=== PATIENT | male | born 1955 | race Caucasian/White ===

== ENCOUNTER 2021-07-06 03:44 | Inpatient (IN) | payer OTHER ==
[~2021-07-06] VITALS: Ht 170.2 cm; Wt 103.3 kg
[~2021-07-06 03:44] MED LIST: ACETAMINOPHEN325 M1 PO; AFRIN30 ML NAS; ALPHAGAN P5 M1 OPTH; AMLODIPINE BESYL5 MG PO; ASPIRIN EC325 MG PO; BUSPIRONE HCL5 MG PO; CARVEDILOL12.5 MG PO; CITALOPRAM HBR10 MG PO; CITALOPRAM HBR20 MG PO; CLINDAMYCIN HC300 MG PO; CLOTRIMAZOLE15 GM TOP; COMBIVENT RESPIM4 GM INH; COREG12.5 MG PO; FISH OIL 1,2001 EAC3 PO; FLUOXETINE HCL10 M1 PO; GABAPENTIN300 MG PO; GUAIFENESIN200 MG PO; HUMALOG100 UNIT/1 SUB-Q; HYDROXYZIN10 MG/5 M1 PO; HYDROXYZINE HCL25 MG PO; IBUPROFEN800 MG PO; IPRAT-ALBUT 0.5-3 ML INH; KEPPRA500 MG PO; LATANOPROST2.5 ML OU; LEVAQUIN750 MG PO; LO-DOSE ASPIRIN81 M1 PO; LOVENOX40 MG SUB-Q; METOPROLOL SUC200 MG PO; METOPROLOL SUCC50 MG PO; MULTI-DAY VITA1 EACH PO; NAPROSYN375 MG PO; NIFEDICAL XL30 MG PO; NORVASC5 MG PO; NYSTATIN15 GM TOP; OMEPRAZOLE20 MG PO; OXYMETAZOLINE H15 ML NAS; PRAVACHOL20 MG PO; PRAVACHOL40 MG PO; PRAVACHOL80 MG PO; PROCARDIA XL30 MG PO; PROTONIX40 MG PO; PROZAC10 MG PO; SAW PALMETTO450 MG PO; SENNA8.6 MG PO; SUPER OMEGA-31000 MG PO; TAB A VITE1 EAC1 PO; TOPROL XL200 MG PO; TRIAMCINOLONE A15 GM TOP; TUMS200 MG PO; ZITHROMAX250 MG PO
--- NOTE | 2021-07-06 06:30 | NUR ---
pt admitted from ed, to room 113. 1.5Lnc, sats 95%, tel 5 for cpox placed. dependent with 3 staff to move pt from stretcher to bed. able to lift his right leg up in air, as well as left leg, left arm and hand. right arm unable to lift, he shows me how he lifts it, with his left arm. unable to answer questions for the history, will complete based on ed report. explained call light, he nodded an understanding, however, will place bed alarm for his safety.
--- NOTE | 2021-07-06 06:46 | NUR ---
PT ARRIVED TO [facility] AND WAS TUCKED IN BY ASSOCIATE PROFESSOR OF CRIMINAL JUSTICEDORENE OSORIO. IN ROOM TO START REMDESIVIR. PT WAS SLEEPING, WOKE PT TO TELL HIM ABOUT MEDICATION AND START IT. HE IS RESTING WITH EYES CLOSED AGAIN AT THIS TIME. IV IS INFUSING FINE AND CALL LIGHT IS CLOSE. BED ALARM IS ON.
--- NOTE | 2021-07-06 07:30 | NUR ---
Shift report received from DORENE Pardo/TAMIA Hodgson in room to assist pt to bathroom, no further needs at this time
--- NOTE | 2021-07-06 07:30 | NUR ---
Shift report received from DORENE Niño, pt resting safely in bed w/ call light in reach and eyes closed, RR even and unlabored, O2 sats 92% on 1.5L via NC.
--- NOTE | 2021-07-06 10:00 | NUR ---
Pt sitting up in bed safely w/ call light in reach. Morning assesment complete, scheduled meds given, and IV abx hung and infusing per provider order. Pt able to answer yes or no questions. called to obtain information on how pt transfers and voids. 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 Pt c/o abd pain unable to rate, PRn Tylenol given per request. No further needs at this time, bed alarm on.
--- NOTE | 2021-07-06 10:00 | NUR ---
PT SITTING UP IN BED. IN TO GET I&O'S. DORENE RODAS NOTIFIED. CALL LIGHT WITHIN REACH, NO FURTHER NEEDS AT THIS TIME.
[2021-07-06] MEDS ORDERED: LUBRICANT EYE D15 ML OPTH (10:49)
[2021-07-06] MEDS ORDERED: VITAMIN D325 MCG PO (10:50)
[2021-07-06] MEDS ORDERED: EUCERIN ECZEMA226 GM TOP (10:53)
[2021-07-06] MEDS ORDERED: GABAPENTIN800 MG PO (10:56)
[2021-07-06] MEDS ORDERED: PRAVASTATIN SOD80 MG PO (10:57)
[2021-07-06] MEDS ORDERED: LEVETIRACETAM500 MG PO (10:59)
[2021-07-06] MEDS ORDERED: SPIRIVA18 MCG INH (11:00)
--- NOTE | 2021-07-06 11:00 | NUR ---
Pt is covid +. attempted to complete assessment on phone and pt is not able to do so. Called pts , Rosalind. She states pt had a stroke in 2012 and has had aphasia and r sided deficit since that time. They use the [facility] for medical and for meds. Pt does not have any dme at home as he will not use it. He is on the [place] home [place] program and has a cg 32 hours per week and respite 40 hrs per year. denies needs and plans on pt discharging to home when cleared medically. She would like PT on discharge.
[2021-07-06] MEDS ORDERED: ACETAMINOPHEN325 M1 PO (11:02)
[2021-07-06] MEDS ORDERED: ALL DAY ALLERGY10 M3 PO (11:03)
[2021-07-06] MEDS ORDERED: KETOCONAZOLE120 ML TOP (11:04)
[2021-07-06] MEDS ORDERED: VENTOLIN HFA18 GM INH (11:05)
[2021-07-06] MEDS ORDERED: CLOBETASOL PROP15 GM TOP (11:08)
[2021-07-06] MEDS ORDERED: TRIAMCINOLONE A15 G1 TOP (11:09)
[2021-07-06] MEDS ORDERED: DOCUSATE SODIU100 MG PO (11:11)
--- NOTE | 2021-07-06 11:15 | NUR ---
MED REC COMPLETED BY PHARMACY
--- NOTE | 2021-07-06 11:19 | NUR ---
DUE TO PRECAUTIONS, I AM UNABLE TO VISIT IN PERSON. WILL FOLLOW NEEDED
--- NOTE | 2021-07-06 12:00 | NUR ---
Pt due to void, bladder scan for 300 mL, provider aware, pt exlpained that if he could not urinate on his own a cortez catheter would be placed. 1PA to bathroom pt able to void 350mL concetrated urine, provider updatd no new orders at this time. Pt now resting in bed safely sitting up eating lunch, no further needs at this time
--- NOTE | 2021-07-06 14:00 | NUR ---
Pt sitting up in bed w/ call light in reach, scheduled meds given per provider order, pt denies any needs at this time
--- NOTE | 2021-07-06 15:08 | NUR ---
RESPIRATORY THERAPIST IN ROOM TO GIVE BREATHING TREATMENT. CALL LIGHT WITHIN REACH, NO FURTHER NEEDS AT THIS TIME.
--- NOTE | 2021-07-06 16:07 | NUR ---
Pt sitting up in bed w/ call light in reach, pt denies any needs at this time, IV fluids infusing per provider order, O2 sats 93% on 2L via NC
--- NOTE | 2021-07-06 18:01 | NUR ---
Pt sitting up in bed safely w/ call light in reach and bed alarm on, pt denies any needs at this time
--- NOTE | 2021-07-06 19:02 | NUR ---
PT SITTING CROSS LEGGED IN BED WATCHING TV. CALL LIGHT WITHIN REACH, NO FURTHER NEEDS AT THIS TIME
--- NOTE | 2021-07-06 19:30 | NUR ---
IN TO SEE PT. PT IN BED AWAKE AND ALER WATCHING TV. PT DENIES PAIN AT THIS ITME. CALL LIGHT IN REACH.
--- NOTE | 2021-07-06 21:40 | NUR ---
I AND O'S, VSS COMPLETED. SCHEDULED MEDICATIONS GIVEN.PT DENIES PAIN. PT USING IS 1000-1250ML X 10. O2 92 ON 2LNC. NON-PRODUCTIVE COUGH NOTED. LUNGS DIM ON THE RIGHTPOSTERIORLY AND CRACKLES UPPER TYSON NOTED. NO OTHER NEEDS. BED ALARM ON. CALL LIGHT IN REACH.
--- NOTE | 2021-07-06 23:00 | NUR ---
UPDATE PROVIDED TO FAMILY.
--- NOTE | 2021-07-06 23:05 | NUR ---
PT CALLED, PT NEEDING TO VOID, SBA, BACK TO BED, ALARM IS SET
--- NOTE | 2021-07-06 23:40 | NUR ---
IN TO SEE PT. PT DENIES PAIN OR NEED TO USE RESTROOM. BED ALRAM ON. NO NEEDS, CALL LIGHT IN REACH.
--- NOTE | 2021-07-07 02:32 | NUR ---
PT IN BED AWAKE AND ALERT. TAMIA LINCOLN IN ROOM WITH PT. PT DENIES PAIN OR OTHER NEEDS. BED ALRAM ON, CALL LIGHT IN REACH.
--- NOTE | 2021-07-07 03:33 | NUR ---
PT UP TO USE BATHROOM AND BACK TO BED. O2 91 ON 2 LNC. PT USING IS 1500-1750MLS X 10 WITH ENCOURAGEMENT. JELLO AND FRESH WATER PROVIDED. PT DENIES PAIN. NO OTHER NEEDS, BED ALARM ON. CALL LIGHT IN REACH.
--- NOTE | 2021-07-07 04:56 | NUR ---
ALERT AND ORIENTED, SL. REG DIET, 2L NC. IS WITH ENCOURAGEMENT, 1 PA TO BR. CONT. WOUND CONSULT. APHASIA.
--- NOTE | 2021-07-07 09:30 | NUR ---
REPORT RECEIVED FROM NIGHT RN AND PT. CARE RESUMED. PT. IS ALERT AND ORIENTED. HE IS ABLE TO GIVE SHORT ANSWERS, BUT ANSWERED INAPPROPRIATELY WHEN ASKED . ON 2L NC AND O2 SAT IS 92%. PT. AMBULATED WITH SBA TO BATHROOM TO VOID. TOLERATED WELL. CRACKLES PRESENT IN LLL AND DIM. RLL. IV SITE WNL AND FLUSHES WELL. DISCUSSED MEDS, SAFETY AND O2. LEFT RESTING WITH CALL LIGHT IN REACH.
--- NOTE | 2021-07-07 11:00 | NUR ---
No plan for dc today. would like HH on dc.
--- NOTE | 2021-07-07 11:20 | NUR ---
ROUNDING ON PT. HE IS RESTING WITH EYES CLOSED. ON 2L NC AND O2 SAT IS 93%.
--- NOTE | 2021-07-07 12:19 | NUR ---
PT.'S PARTNER, VIJI CALLED FOR AN UPDATE. SHE WAS UPDATED AND WILL CALL AGAIN THIS EVENING.
--- NOTE | 2021-07-07 12:51 | EKG ---
[facility] [address] [place], [place] [address] Signed Normal sinus rhythm Septal infarct (cited on or before 10-APR-2018) Abnormal ECG When compared with ECG of 10-APR-2018 14:44, Nonspecific T wave abnormality, improved in Lateral leads Confirmed by REN DHILLON DO ([id number]) on 07/07/2021 12:50:42 PM Electronically Signed By: REN DHILLON DO 07/07/21 1251 PATIENT NAME: JOSETAIWO ERICH Electrocardiogram DATE OF : 53 PHYSICIAN: REN DHILLON DO REPORT #: [id number] REPORT IS CONFIDENTIAL AND NOT TO BE RELEASED WITHOUT AUTHORIZATION
--- NOTE | 2021-07-07 14:28 | NUR ---
WILL CONTINUE TO FOLLOW, PT ON PRECAUTIONS
--- NOTE | 2021-07-07 14:52 | NUR ---
PT. ASSISTED WITH REPLACING PULSE OX. O2 SAT WAS 87-88% AND TITRATED TO 3L NC. PT. REFUSES PRONING OR SITTING IN CHAIR. HE APPEARS CONFUSED AT ONE POINT, WAVING AT THE DOOR WHEN NO ONE WAS THERE. DIFFICULT TO ASSESS PT. ORIENTATION DUE TO EXPRESSIVE APHASIA/ COMMUNICATION. WILL CONTINUE TO MONITOR.
--- NOTE | 2021-07-07 17:00 | NUR ---
PT. CONSENT SIGNED TO PHOTOGRAPH WOUND ON GLUTEAL FOLDS. PHOTOS PLACED IN CHART. PT. BROUGHT WATER. LEFT RESTING WITH CALL LIGHT IN REACH.
--- NOTE | 2021-07-07 19:35 | NUR ---
kayla ramirez called with updates via phone.
--- NOTE | 2021-07-07 20:38 | NUR ---
WAS ON 3L NC , SATS 93-95%, DECREAED TO 2LNC, TELE CPOX IN PLACE. COOP, AMBULATED TO BR W/O ASSIST. R ARM FLACCID, R ARM WEAKNESS. SL LW PATENT. DISPHAGIA, ANSWERS BETTER YES/NO QUESTIONS. COOPERATIVE.
--- NOTE | 2021-07-07 23:12 | NUR ---
CONTINUES ON 2LNC, CPOX/TELE#[address] SATS 93%, WATCHING TV, DENIES CO W[place] SOB. CONT ON RESP ISOLATION. R ARM WEAKNESS STIFFNESS R HAND. CALL LIGHT AND FLUIDS T HANDS REACH. STATED "WHEN CAN I GO HOME, I WANT TO GO HOME" EXPRESSIVE APHASIS PRESENT. TOOK SEVERAL TRYES AND STATED YES.
--- NOTE | 2021-07-07 23:45 | NUR ---
PT CAME OUT AND WAS SHOUTING BY HIS ROOM DOOR, REDIRECTED TO ROOM DUE TO FOLR SOTELO, COOPERATIVE. WAS ON ROOM AIR, HAD TAKEN O2 OFF, TELE/CPOX OFF. BACK ON 93% SATS AT THIS TIME. OUTPATIENT CODING SPECIALIST IN ROOM, PT IN REP ISOLATION
--- NOTE | 2021-07-08 02:55 | NUR ---
resting, eyes closed, on 2lnc, cpox #5 92%, no distress, bed alarm on. on rep isolation. call light and fluids at bedside
--- NOTE | 2021-07-08 03:29 | NUR ---
pt's bed alarm going off, pt is in bathroom, states "i got to piss" pt remains on o2, ambulated self back to bed when done. made sure pt's rails were up and call light in reach. pt had a small smear of bm, and about 450 ml urine in hat that was losided in toilet.
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
--- NOTE | 2021-07-08 05:22 | NUR ---
ON 2LNC, TELE/CPOX 91%. TOLERATING LIQUIDS WELL, NO SOB. CALL LIGHT AT HANDS REACH. CONTINUES ON RESPIRATORY ISOLATION
--- NOTE | 2021-07-08 06:20 | NUR ---
HEARD YELLING. PT WANTING TO GET UP TO BATHROOM. CALL LIGHT HAD FALLEN ON FLOOR. SBA TO BATHROOM, INCON CARE GIVEN, VOIDED IN TOILET WELL. CLEAN ATTENDS PLACED, BACK TO BED CALL LIGHT IN HAND, BED ALARM PLACED.
--- NOTE | 2021-07-08 08:00 | NUR ---
REPORT RECEIVED FROM NIGHT RN AND PT. CARE RESUMED. PT. IS ALERT AND ORIENTED. SHE DENIES PAIN AT THIS TIME. WITH SITTING UP PT. REPORTS FEELING LIGHT HEADED AND DIZZY. RESOLVED AFTER A COUPLE MINUTES. ON R.A. AND O2 SAT. IS 96%. IV SITE WNL AND FLUSHES WELL. DISCUSSED POC, MEDS AND SAFETY. LEFT RESTING WITH CALL LIGHT IN REACH.
--- NOTE | 2021-07-08 08:30 | NUR ---
REPORT RECEIVED FROM NIGHT RN AND PT. CARE RESUMED. PT. IS ALERT AND SITTING UPRIGHT IN BED. . HE DENIES PAIN OR SOB. ON 2L NC AND O2 SAT IS 93%. IV SITE WNL AND FLUSHES WELL. LUNGS COARSE THROUGHOUT WITH EXP. WHEEZING ON RUL. GLUTEAL FOLD IS REDDENED WITH ABBRASION. DISCUSSED POC, MEDS AND ENCOURAGED HIM TO USE I.S. PT. DEMONSTRATED USE. LEFT RESTING WITH CALL LIGHT IN REACH.
[2021-07-08] MEDS ORDERED: DEXAMETHASONE4 MG PO (12:40)
--- NOTE | 2021-07-08 13:43 | NUR ---
ORDER FOR HOME O2, FACESHEET AND DISCHARGE SUMMARY SENT TO [facility]. ORDER FOR PT FAXED TO [facility].
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
== END 2021-07-08 14:55 | disposition home or self-care (01) | DRG 177 ==
LOC: ED 03:44 → MS 05:01
PROVIDERS: ADMIT Student in an Organized Health Care Education/Training Program; ATTEND Student in an Organized Health Care Education/Training Program
PROC: XW033E5 Introduction of Remdesivir Anti-infective into Peripheral Vein, Percutaneous Approach, New Technology Group 5 (ICD-10-PCS; principal; 2021-07-06)
PROC: 3E0DX3Z Introduction of Anti-inflammatory into Mouth and Pharynx, External Approach (ICD-10-PCS; 2021-07-06)
DX: U07.1 COVID-19 (principal); J96.01 Acute respiratory failure with hypoxia; J12.82 Pneumonia due to coronavirus disease 2019; J44.1 Chronic obstructive pulmonary disease with (acute) exacerbation; J44.0 Chronic obstructive pulmonary disease with (acute) lower respiratory infection; I69.351 Hemiplegia and hemiparesis following cerebral infarction affecting right dominant side; K21.9 Gastro-esophageal reflux disease without esophagitis; R73.03 Prediabetes; G40.909 Epilepsy, unspecified, not intractable, without status epilepticus; I10 Essential (primary) hypertension; G89.29 Other chronic pain; H40.9 Unspecified glaucoma; Z88.2 Allergy status to sulfonamides; I69.320 Aphasia following cerebral infarction; Z88.1 Allergy status to other antibiotic agents; Z88.8 Allergy status to other drugs, medicaments and biological substances; Z91.040 Latex allergy status; Z98.890 Other specified postprocedural states; Z79.899 Other long term (current) drug therapy; Z79.82 Long term (current) use of aspirin
CPT/HCPCS: 36600; 71045; 80053; 80503; 82803; 83036; 83605; 83615; 85025; 86140; 93005; 93010; 94640; 94667; 94668; 94760; 94761; 94762; 96374; 99285-25; C9803; J0456; J1650; J1815; J2920; J2930; J7050; J7060; J7121; U0003